=== PATIENT | female | born 2000 | race Caucasian/White ===

== ENCOUNTER 2022-01-29 12:54 | Emergency (ER) | payer OTHER ==
[~2022-01-29] VITALS: Ht 154.9 cm; Wt 73.5 kg
== END 2022-01-29 18:42 | disposition home or self-care (01) ==
LOC: EMR PED 12:54 → ER 12:57 → EMR PED 12:57 → ER 18:42
DX: O26.891 Other specified pregnancy related conditions, first trimester (principal); R05.9 Cough, unspecified; Z3A.10 10 weeks gestation of pregnancy; Z20.822 Contact with and (suspected) exposure to COVID-19; Z88.2 Allergy status to sulfonamides; Z88.6 Allergy status to analgesic agent

== ENCOUNTER 2022-02-22 10:19 | Outpatient (CLI) | payer OTHER | END 2022-02-22 12:10 | disposition home or self-care (01) | LOC: PRENATAL 10:19 | PROVIDERS: ATTEND Obstetrics & Gynecology Maternal & Fetal Medicine | DX: O36.80X0 Pregnancy with inconclusive fetal viability, not applicable or unspecified (principal); Z3A.13 13 weeks gestation of pregnancy ==

== ENCOUNTER → 2022-05-08 | Outpatient (CLI) | payer OTHER ==
[~2022-05-08] MED LIST: PRENATAL TABLE1 EAC4 PO
== END | disposition home or self-care (01) ==
LOC: OBS/DEL 17:51
PROVIDERS: ATTEND Obstetrics & Gynecology
DX: O36.8120 Decreased fetal movements, second trimester, not applicable or unspecified (principal); Z3A.24 24 weeks gestation of pregnancy

== ENCOUNTER → 2022-05-08 | Emergency (ER) | payer OTHER | END | disposition home or self-care (01) | LOC: EMR PED 16:04 | DX: O36.8120 Decreased fetal movements, second trimester, not applicable or unspecified (principal); Z88.2 Allergy status to sulfonamides; Z88.6 Allergy status to analgesic agent; Z88.1 Allergy status to other antibiotic agents; R05.9 Cough, unspecified ==

== ENCOUNTER 2022-06-28 15:02 | Emergency (ER) | payer OTHER ==
[~2022-06-28] VITALS: Ht 154.9 cm; Wt 84.4 kg
== END 2022-06-28 20:17 | disposition home or self-care (01) ==
LOC: ER 15:02
DX: O26.893 Other specified pregnancy related conditions, third trimester (principal); Z3A.31 31 weeks gestation of pregnancy; Z88.2 Allergy status to sulfonamides; Z88.6 Allergy status to analgesic agent

== ENCOUNTER 2023-05-23 11:23 | Outpatient (CLI) | payer OTHER | END 2023-05-23 11:25 | disposition home or self-care (01) | LOC: PRENATAL 11:23 | PROVIDERS: ATTEND Obstetrics & Gynecology Maternal & Fetal Medicine | DX: O36.80X0 Pregnancy with inconclusive fetal viability, not applicable or unspecified (principal); Z36.82 Encounter for antenatal screening for nuchal translucency; O34.219 Maternal care for unspecified type scar from previous cesarean delivery; Z36.9 Encounter for antenatal screening, unspecified; Z14.8 Genetic carrier of other disease; Z3A.12 12 weeks gestation of pregnancy ==

== ENCOUNTER 2023-07-28 10:35 | Outpatient (CLI) | payer OTHER | END 2023-07-28 10:50 | disposition home or self-care (01) | LOC: PRENATAL 10:35 | PROVIDERS: ATTEND Obstetrics & Gynecology Maternal & Fetal Medicine | DX: O35.9XX0 Maternal care for (suspected) fetal abnormality and damage, unspecified, not applicable or unspecified (principal); O35.3XX0 Maternal care for (suspected) damage to fetus from viral disease in mother, not applicable or unspecified; O34.219 Maternal care for unspecified type scar from previous cesarean delivery; O44.00 Complete placenta previa NOS or without hemorrhage, unspecified trimester; Z3A.21 21 weeks gestation of pregnancy ==

== ENCOUNTER 2023-08-24 01:02 | Outpatient (CLI) | payer OTHER ==
[2023-08-24] MEDS ORDERED: ACETAMINOPHEN 500 MG GEL..CAP PO ONE ×2 (01:34→02:15)
[2023-08-24] MEDS ORDERED: RINGERS SOLUTION,LACTATED 1,000 ML IV SCH (02:15)
== END 2023-08-24 13:12 | disposition home or self-care (01) ==
LOC: OBS/DEL 01:02
PROVIDERS: ATTEND Obstetrics & Gynecology
DX: O26.893 Other specified pregnancy related conditions, third trimester (principal); R10.2 Pelvic and perineal pain; O26.849 Uterine size-date discrepancy, unspecified trimester; O36.8199 Decreased fetal movements, unspecified trimester, other fetus; O60.00 Preterm labor without delivery, unspecified trimester; Z3A.25 25 weeks gestation of pregnancy

== ENCOUNTER 2023-10-08 09:03 | Inpatient (IN) | payer OTHER ==
[2023-10-08] VITALS (7 sets, daily range): BP systolic 90–113; BP diastolic 59–73
[~2023-10-08] VITALS: Ht 154.9 cm; Wt 2.3 kg
[2023-10-08] MEDS ORDERED: RINGERS SOLUTION,LACTATED 1,000 ML IV SCH (09:15)
[2023-10-08 10:39] LABS: URINE APPEARANCE Cloudy; URINE BILIRRUBIN Small (NEGATIVE); URINE BLOOD Negative; URINE COLOR Dark Yellow; URINE GLUCOSE Negative (NEGATIVE); URINE KETONE Trace (NEGATIVE); URINE LEUKOCYTE Moderate; URINE NITRATE Negative; URINE PROTEIN Trace (NEGATIVE)
[2023-10-08 10:43] LABS: URINE BACTERIA 9659.1 uL (0.0-1933); URINE EPITHELIAL CELLS 188.7 uL (0.0-38.8); URINE RBC 3.8 uL (0.0-20.8); URINE WBC 108.6 uL (0.0-23.2)
[2023-10-08 10:47] LABS: HEMATOCRIT 37.8 % (36.0-45.00); HEMOGLOBIN 12.9 g/dL (12.0-15.00); MEAN CELL VOLUME 83.4 fL (80.00-100.00); MEAN CORPUSCULAR HEMOGLOBIN 28.5 pg (27.00-32.0); MEAN CORPUSCULAR HGB CONC 34.2 g/dl (32.0-36.0); PLATELET COUNT 287 K/uL (150-450); RED BLOOD COUNT 4.53 M/uL (4.00-6.00); RED CELL DISTRIBUTION WIDTH 13.8 % (11.5-14.5)
[2023-10-08 11:11] LABS: ALBUMIN 2.6 gm/dL (3.4-5.0); BILIRUBIN TOTAL 1.25 mg/dL (0.3-1.2); CALCIUM 9.2 mg/dL (8.5-10.1); CREATININE SERUM 0.46 mg/dL (0.55-1.02); GFR 171.48; GLOBULINA 3.6 G/DL (2.4-3.5); POTASSIUM 4.5 mEq/L (3.5-5.1); TOTAL PROTEIN 6.2 gm/dL (6.4-8.2)
[2023-10-08 11:14] LABS: URINE CAST 0.15 uL (0.0-1.40)
[2023-10-08 11:16] LABS: URINE EPITHELIAL CELLS LOADED /HPF
[2023-10-08] MEDS ORDERED: CEFAZOLIN SODIUM 1,000 MG VIAL ONE (12:36)
[2023-10-08] MEDS ORDERED: CEFAZOLIN SODIUM 1,000 MG VIAL IV SCH (12:41)
[2023-10-08] MEDS ORDERED: DIPHENHYDRAMINE HCL 50 MG/ML VIAL 1ML IV ONE (14:30)
[2023-10-08] MEDS ORDERED: CLINDAMYCIN PHOSPHATE 150 MG/ML (900mg) IV SCH (17:00)
[2023-10-08] MEDS ORDERED: BETAMETHASONE ACETATE,SOD PHOS 30 MG/5 ML ML ONE (21:45)
[2023-10-08] MEDS ORDERED: BETAMETHASONE ACETATE,SOD PHOS 30 MG/5 ML ML IM ONE (22:00)
[2023-10-08] MEDS ORDERED: AZITHROMYCIN 500 MG TABLET PO ONE (22:30)
[2023-10-09 03:36] VITALS: BP 93/55
[2023-10-09 07:40] VITALS: BP 119/71
[2023-10-09] MEDS ORDERED: GENTAMICIN SULFATE 40 MG/ML VIAL IV NR (09:00)
[2023-10-09 12:26] VITALS: BP 96/63
[2023-10-09 15:27] VITALS: BP 100/54
[2023-10-09 18:46] VITALS: BP 90/63
[2023-10-09] MEDS ORDERED: BETAMETHASONE ACETATE,SOD PHOS 30 MG/5 ML ML IM NR (21:50)
[2023-10-09 23:17] VITALS: BP 97/60
[2023-10-10 03:05] VITALS: BP 97/59
[2023-10-10 06:30] VITALS: BP 101/56; O2SAT 97
[2023-10-10] MEDS ORDERED: GENTAMICIN SULFATE 40 MG/ML VIAL IV NR (12:00)
[2023-10-10 12:25] VITALS: BP 104/64
[2023-10-10 15:13] VITALS: BP 104/61
[2023-10-10 19:38] VITALS: BP 123/74
[2023-10-10 23:27] VITALS: BP 96/54
[2023-10-11] MEDS ORDERED: CLINDAMYCIN HCL 300 MG CAPSULE PO SCH (01:00)
[2023-10-11 04:23] VITALS: BP 104/55
[2023-10-11 07:26] VITALS: BP 90/59; O2SAT 98
[2023-10-11 11:45] VITALS: BP 91/50; O2SAT 97
[2023-10-11 13:57] VITALS: BP 116/69; O2SAT 99
[2023-10-12 01:09] VITALS: BP 107/62
[2023-10-12 08:00] VITALS: BP 108/67
[2023-10-12] MEDS ORDERED: FLUCONAZOLE 150 MG TABLET PO NR (09:27)
[2023-10-12 16:38] VITALS: BP 98/62
[2023-10-13] VITALS: BP 107/58
[2023-10-13 08:00] VITALS: BP 117/73
[2023-10-13 13:23] LABS: HEMATOCRIT 38.6 % (36.0-45.00); HEMOGLOBIN 13.2 g/dL (12.0-15.00); MEAN CELL VOLUME 84.6 fL (80.00-100.00); MEAN CORPUSCULAR HGB CONC 34.2 g/dl (32.0-36.0); PLATELET COUNT 305 K/uL (150-450); RED BLOOD COUNT 4.57 M/uL (4.00-6.00); RED CELL DISTRIBUTION WIDTH 13.7 % (11.5-14.5)
[2023-10-13 15:45] LABS: PH,URINE 7.5 (5.0-8.0); URINE APPEARANCE Clear; URINE BILIRRUBIN Negative (NEGATIVE); URINE BLOOD Negative; URINE COLOR Yellow; URINE GLUCOSE Negative (NEGATIVE); URINE KETONE Negative (NEGATIVE); URINE LEUKOCYTE Negative; URINE NITRATE Negative; URINE PROTEIN Negative (NEGATIVE); URINE UROBILINOGEN 0.2 E.U./dl
[2023-10-13 15:48] LABS: URINE BACTERIA 144.8 uL (0.0-1933); URINE EPITHELIAL CELLS 31.9 uL (0.0-38.8); URINE RBC 3.6 uL (0.0-20.8); URINE WBC 8.1 uL (0.0-23.2)
[2023-10-13 16:01] VITALS: BP 112/69
[2023-10-14 02:19] VITALS: BP 104/64
[2023-10-14 09:00] VITALS: BP 111/73
[2023-10-14 17:00] VITALS: BP 118/72
[2023-10-15 02:01] VITALS: BP 115/65
[2023-10-15 10:01] VITALS: BP 138/81
[2023-10-15 16:48] VITALS: BP 104/67
[2023-10-16 02:21] VITALS: BP 106/53
[2023-10-16 08:00] VITALS: BP 129/83
[2023-10-16 16:59] VITALS: BP 109/68
[2023-10-17 00:15] VITALS: BP 104/65
[2023-10-17 08:43] VITALS: BP 112/69
[2023-10-17 17:37] VITALS: BP 102/64
[2023-10-17] MEDS ORDERED: Pramoxine HCl 15 GM FOAM RECTAL SCH (21:00)
[2023-10-17] MEDS ORDERED: HYDROCORTISONE 2.5% 30 GM TUBE RECTAL SCH (21:00)
[2023-10-18 00:25] VITALS: BP 114/67
[2023-10-18 09:23] VITALS: BP 110/73
[2023-10-18 18:16] VITALS: BP 113/66
[2023-10-19] VITALS: BP 111/64
[2023-10-19 08:53] VITALS: BP 108/68
[2023-10-19] MEDS ORDERED: PNV,CALCIUM 72/IRON/FOLIC ACID 1 TAB TABLET PO SCH (09:00)
[2023-10-19 16:00] VITALS: BP 112/67
[2023-10-20] VITALS: BP 130/76
[2023-10-20 08:45] VITALS: BP 115/61
[2023-10-20 17:50] VITALS: BP 107/69
[2023-10-20] MEDS ORDERED: ACETAMINOPHEN 500 MG GEL..CAP PO PRN (23:00)
[2023-10-21 01:00] VITALS: BP 93/59
[2023-10-21 07:45] VITALS: BP 100/63
[2023-10-21 14:33] VITALS: BP 102/66
[2023-10-22 01:17] VITALS: BP 111/69
[2023-10-22 07:57] LABS: HEMATOCRIT 37.5 % (36.0-45.00); HEMOGLOBIN 12.9 g/dL (12.0-15.00); MEAN CELL VOLUME 84.1 fL (80.00-100.00); MEAN CORPUSCULAR HGB CONC 34.4 g/dl (32.0-36.0); PLATELET COUNT 283 K/uL (150-450); RED BLOOD COUNT 4.46 M/uL (4.00-6.00); RED CELL DISTRIBUTION WIDTH 13.6 % (11.5-14.5)
[2023-10-22 08:35] LABS: INR 0.99; PARTIAL THROMBOPLASTIN TIME 30.4 SECONDS (22.0-34.0); PROTHROMBIN TIME 10.8 SECONDS (9.0-11.5)
[2023-10-22 11:37] VITALS: BP 105/71
[2023-10-22 15:54] VITALS: BP 113/64
[2023-10-23 01:00] VITALS: BP 123/79
[2023-10-23] MEDS ORDERED: ERYTHROMYCIN BASE OPHT 1GM EACH TUBE OP ONE (08:15)
[2023-10-23] MEDS ORDERED: CHLORHEXIDINE GLUCONATE 120 ML BOTTLE TOP ONE (08:15)
[2023-10-23] MEDS ORDERED: OXYTOCIN 10 UNITS/ML VIAL IV ONE ×2 (08:15→13:30)
[2023-10-23] MEDS ORDERED: OXYTOCIN 10 UNITS/ML VIAL ONE (08:17)
[2023-10-23 08:40] VITALS: BP 121/72
[2023-10-23] MEDS ORDERED: BETAMETHASONE ACETATE,SOD PHOS 30 MG/5 ML ML IM NR (11:00)
[2023-10-23] MEDS ORDERED: MORPHINE SULFATE 4 MG/ML VIAL IV ONE ×2 (14:15→15:25)
[2023-10-23] MEDS ORDERED: ONDANSETRON HCL 2 MG/ML VIAL IV PRN (14:45)
[2023-10-23] MEDS ORDERED: MORPHINE SULFATE 4 MG/ML CARTRIDGE IV PRN (14:45)
[2023-10-23] MEDS ORDERED: METOCLOPRAMIDE HCL 5 MG/ML VIAL IV SCH (16:15)
[2023-10-23] MEDS ORDERED: OXYTOCIN 1,000 ML IV SCH (16:15)
[2023-10-23] MEDS ORDERED: FF) RHO(D) IMMUNE GLOBULIN (POM) IM SCH (16:15)
[2023-10-23 17:41] VITALS: BP 117/71
[2023-10-23] MEDS ORDERED: SIMETHICONE 125 MG CAPSULE PO SCH (18:00)
[2023-10-23] MEDS ORDERED: SENNOSIDES 1 TAB TABLET PO SCH (21:00)
[2023-10-24] VITALS: BP 120/73
[2023-10-24 06:55] LABS: HEMATOCRIT 36.5 % (36.0-45.00); HEMOGLOBIN 12.8 g/dL (12.0-15.00); MEAN CELL VOLUME 83.3 fL (80.00-100.00); MEAN CORPUSCULAR HEMOGLOBIN 29.1 pg (27.00-32.0); PLATELET COUNT 323 K/uL (150-450); RED BLOOD COUNT 4.38 M/uL (4.00-6.00); RED CELL DISTRIBUTION WIDTH 13.6 % (11.5-14.5)
[2023-10-24 08:00] VITALS: BP 110/66
[2023-10-24 19:12] VITALS: BP 101/69
[2023-10-25] VITALS: BP 95/60
[2023-10-25 08:54] VITALS: BP 124/75
[2023-10-25 18:00] VITALS: BP 107/69
[2023-10-26 02:18] VITALS: BP 113/70
[2023-10-26 09:00] VITALS: BP 111/71
== END 2023-10-26 11:59 | disposition home or self-care (01) | DRG 787 ==
LOC: OBS/DEL 09:03 → OB/GYN 21:43 → LDR 21:43 → OB/GYN 10-11 12:08
PROVIDERS: Obstetrics & Gynecology; Specialist; ADMIT Obstetrics & Gynecology; ATTEND Obstetrics & Gynecology
PROC: 4A1HXCZ Monitoring of Products of Conception, Cardiac Rate, External Approach (ICD-10-PCS; 2023-10-08)
PROC: BY4FZZZ Ultrasonography of Third Trimester, Single Fetus (ICD-10-PCS; 2023-10-08)
PROC: BY4FZZZ Ultrasonography of Third Trimester, Single Fetus (ICD-10-PCS; 2023-10-10)
PROC: BU4CZZZ Ultrasonography of Uterus and Ovaries (ICD-10-PCS; 2023-10-10)
PROC: BY4FZZZ Ultrasonography of Third Trimester, Single Fetus (ICD-10-PCS; 2023-10-17)
PROC: 10D00Z1 Extraction of Products of Conception, Low, Open Approach (ICD-10-PCS; principal; 2023-10-23 08:45)
DX: O42.013 Preterm premature rupture of membranes, onset of labor within 24 hours of rupture, third trimester (principal); O36.0930 Maternal care for other rhesus isoimmunization, third trimester, not applicable or unspecified; O36.8130 Decreased fetal movements, third trimester, not applicable or unspecified; O36.1930 Maternal care for other isoimmunization, third trimester, not applicable or unspecified; Z3A.32 32 weeks gestation of pregnancy; Z37.0 Single live birth; Z20.822 Contact with and (suspected) exposure to COVID-19; Z3A.34 34 weeks gestation of pregnancy